=== PATIENT | female | born 1975 | race Caucasian/White ===

== ENCOUNTER 2019-05-02 18:55 | Emergency (ER) | payer SELFPAY ==
[2019-05-02] MEDS ORDERED: Haloperidol Lactate 5 MG/ML SDV IM ONE ×2 (19:06→20:10)
[2019-05-02] MEDS ORDERED: Sodium Chloride 0.9% 1,000 ML IV ONE (19:06)
[2019-05-02] MEDS ORDERED: diphenhydrAMINE 50 MG/ML SDV IVPUSH ONE (19:06)
[2019-05-02] MEDS ORDERED: LORazepam 2 MG/ML SDV IVPUSH ONE (19:06)
--- NOTE | 2019-05-02 19:17 | EDM.PDOC ---
ED HPI GENERAL MEDICAL PROBLEM - General Chief Complaint: Drug or Alcohol Abuse Stated Complaint: RECOVERY HELP Time Seen by Provider: 05/02/19 18:58 - History of Present Illness INITIAL COMMENTS - FREE TEXT/NARRATIVE: HISTORY AND PHYSICAL: History of present illness: Patient 44-year-old white female history of polysubstance abuse inclusive of methamphetamine heroin marijuana who presents requesting referral for polysubstance abuse. Review of systems: As per history of present illness and below otherwise all systems reviewed and negative. Past medical history: As per history of present illness and as reviewed below otherwise noncontributory. Surgical history: As per history of present illness and as reviewed below otherwise noncontributory. Social history: No reported history of drug or alcohol abuse. Family history: As per history of present illness and as reviewed below otherwise noncontributory. Physical exam: HEENT: Atraumatic, normocephalic, pupils reactive, negative for conjunctival pallor or scleral icterus, mucous membranes moist, throat clear, neck supple, nontender, trachea midline. Lungs: Clear to auscultation, breath sounds equal bilaterally, chest nontender. Heart: S1S2, regular, negative for clicks, rubs, or JVD. Abdomen: Soft, nondistended, nontender. Negative for masses or hepatosplenomegaly. Negative for costovertebral tenderness. Pelvis: Stable nontender. Genitourinary: Deferred. Rectal: Deferred. Extremities: Atraumatic, negative for cords or calf pain. Neurovascular unremarkable. Neuro: Awake, alert, restless oriented. Cranial nerves II through XII unremarkable. Cerebellum unremarkable. Motor and sensory unremarkable throughout. Exam nonfocal. Diagnostics: CBC CMP chest x-ray Therapeutics: Saline 1 L bolus Ativan 1 mg IV Haldol 5 mg IV Benadryl 50 mg IV Impression: #1 polysubstance abuse Definitive disposition and diagnosis as appropriate pending reevaluation and review of above. - Related Data Allergies Allergy/AdvReac Type Severity Reaction Status Date / Time meperidine [From Demerol] Allergy Other Verified 05/02/19 18:57 Home Meds: Home Meds . [No Known Home Meds] 05/02/19 [History] Past Medical History - Past Health History Medical/Surgical History: Denies Medical/Surgical History Social & Family History - Family History Family Medical History: Noncontributory - Tobacco Use Smoking Status *Q: Unknown Ever Smoked - Recreational Drug Use Recreational Drug Use: Yes Recreational Drug Type: Reports: Heroin, Xanax ED ROS GENERAL - Review of Systems Review Of Systems: Comprehensive ROS is negative, except as noted in HPI. ED EXAM, GENERAL - Physical Exam Exam: See Below (dictation) Course - Vital Signs Last Recorded V/S: Last Vital Signs Temp 36.2 C 05/02/19 20:00 Pulse 90 05/02/19 20:00 Resp 18 05/02/19 20:00 BP 130/70 05/02/19 20:00 Pulse Ox 97 05/02/19 20:00 - Orders/Labs/Meds Labs: Laboratory Tests 05/02/19 05/02/19 Range/Units 19:05 19:05 WBC 11.31 H (4.0-11.0) K/uL RBC 4.08 L (4.30-5.90) M/uL Hgb 11.2 L (12.0-16.0) g/dL Hct 33.2 L (36.0-46.0) % MCV 81.4 (80.0-98.0) fL MCH 27.5 (27.0-32.0) pg MCHC 33.7 (31.0-37.0) g/dL RDW Std Deviation 48.4 (28.0-62.0) fl RDW Coeff of Kameron 17 H (11.0-15.0) % Plt Count 398 (150-400) K/uL MPV 9.90 (7.40-12.00) fL Neut % (Auto) 74.7 (48.0-80.0) % Lymph % (Auto) 17.7 (16.0-40.0) % [place] % (Auto) 6.8 (0.0-15.0) % Eos % (Auto) 0.6 (0.0-7.0) % Baso % (Auto) 0.2 (0.0-1.5) % Neut # (Auto) 8.5 H (1.4-5.7) K/uL Lymph # (Auto) 2.0 (0.6-2.4) K/uL [place] # (Auto) 0.8 (0.0-0.8) K/uL Eos # (Auto) 0.1 (0.0-0.7) K/uL Baso # (Auto) 0.0 (0.0-0.1) K/uL Sodium 142 (136-145) mmol/L Potassium 3.3 L (3.5-5.1) mmol/L Chloride 107 (98-107) mmol/L Carbon Dioxide 24.0 (21.0-32.0) mmol/L BUN 8 (7.0-18.0) mg/dL Creatinine 0.8 (0.6-1.0) mg/dL Est Cr Clr Drug Dosing TNP Estimated GFR (MDRD) > 60.0 ml/min Glucose 107 H (74-106) mg/dL Calcium 9.3 (8.5-10.1) mg/dL Total Bilirubin 0.3 (0.2-1.0) mg/dL AST 9 L (15-37) IU/L ALT 14 (14-63) IU/L Alkaline Phosphatase 72 (46-116) U/L Total Protein 7.5 (6.4-8.2) g/dL Albumin 3.9 (3.4-5.0) g/dL Globulin 3.6 (2.6-4.0) g/dL Albumin/Globulin Ratio 1.1 (0.9-1.6) Meds: Medications Discontinued Medications Generic Name Dose Route Start Last Admin Trade Name Freq PRN Reason Stop Dose Admin Diphenhydramine HCl 50 mg 05/02/19 19:06 05/02/19 19:19 Benadryl IVPUSH 05/02/19 19:07 50 mg ONETIME ONE Administration Haloperidol Lactate 5 mg 05/02/19 19:06 05/02/19 19:19 Haldol IM 05/02/19 19:07 5 mg ONETIME ONE Administration Haloperidol Lactate 5 mg 05/02/19 20:10 05/02/19 20:30 Haldol IM 05/02/19 20:11 5 mg ONETIME ONE Administration Sodium Chloride 1,000 mls @ 999 mls/hr 05/02/19 19:06 05/02/19 19:19 Normal Saline IV 05/02/19 20:06 999 mls/hr STAT ONE Administration Lorazepam 1 mg 05/02/19 19:06 05/02/19 19:18 Ativan IVPUSH 05/02/19 19:07 1 mg ONETIME ONE Administration Departure - Departure Time of Disposition: 01:53 Disposition: Home, Self-Care 01 Condition: Good Clinical Impression: Drug abuse - Discharge Information Instructions: Substance Use Disorder and Mental Illness Referrals: PCP,None [Primary Care Provider] - Forms: ED Department Discharge Additional Instructions: The following information is given to patients seen in the emergency department who are being discharged to home. This information is to outline your options for follow-up care. We provide all patients seen in our emergency department with a follow-up referral. The need for follow-up, as well as the timing and circumstances, are variable depending upon the specifics of your emergency department visit. If you don't have a primary care physician on staff, we will provide you with a referral. We always advise you to contact your personal physician following an emergency department visit to inform them of the circumstance of the visit and for follow-up with them and/or the need for any referrals to a consulting specialist. The emergency department will also refer you to a specialist when appropriate. This referral assures that you have the opportunity for followup care with a specialist. All of these measure are taken in an effort to provide you with optimal care, which includes your followup. Under all circumstances we always encourage you to contact your private physician who remains a resource for coordinating your care. When calling for followup care, please make the office aware that this follow-up is from your recent emergency room visit. If for any reason you are refused follow-up, please contact the [facility] emergency department at and asked to speak to the emergency department charge nurse. Follow-up primary medical doctor discussed return as needed as discussed
[2019-05-02 19:38] LABS: BLOOD UREA NITROGEN,BUN 8 mg/dL (7.0-18.0); CHLORIDE,CL 107 mmol/L (98-107); GLUCOSE RANDOM 107 mg/dL (74-106); POTASSIUM,K 3.3 mmol/L (3.5-5.1); SODIUM,NA 142 mmol/L (136-145)
--- NOTE | 2019-05-02 19:45 | CR ---
Indication: Drug withdrawal. Technique: A single AP portable view of the chest. Comparison: None Findings: The heart is normal in size. The lungs are clear. No infiltrate, pleural effusion, or pneumothorax is identified. Impression: No acute cardiopulmonary process Dictated by Fidelina West MD @ May 02 2019 7:44PM Signed by Dr. Fidelina West @ May 02 2019 7:44PM
== END 2019-05-02 20:35 | disposition home or self-care (01) ==
LOC: MW.ED 18:55
DX: F19.10 Other psychoactive substance abuse, uncomplicated (principal); Z88.8 Allergy status to other drugs, medicaments and biological substances
CPT/HCPCS: 71045; 80053; 85025; 96361; 96372; 96374; 96375; 99285; J1200; J1630; J2060; J7030